=== PATIENT | female | born 1960 | race Caucasian/White ===

== ENCOUNTER 2021-05-27 10:13 | Outpatient (CLI) | payer BC, SELFPAY ==
[2021-05-27 10:42] LABS: Basophils Percent Auto 0.4 % (0.2-1.2); Eosinophils Absolute Auto 0.1 K/mm3 (0-0.3); Eosinophils Percent Auto 1.8 % (0-4.4); Hematocrit 41.1 % (37.0-47.0); Hemoglobin 13.5 g/dL (12.0-15.0); Immature Granulocyte Absolute 0.02 K/mm3 (0.00-0.031); Immature Granulocyte Percent A 0.4 % (0-0.5); Lymphocytes Absolute Auto 1.92 K/mm3 (0.9-3.2); Mean Corpuscular HGB Conc 32.8 g/dl (32-36); Mean Corpuscular Hemoglobin 28.9 pg (26-34); Mean Platelet Volume 9.9 fl (7.4-10.4); Monocytes Absolute Auto 0.4 K/mm3 (0.1-0.6); Neutrophils Percent Auto 54.4 % (45.5-73.1); Platelet Count Result 215 k/mm3 (150-375); Red Blood Count 4.67 M/mm3 (4.2-5.4); Red Cell Distribution Width 13.4 % (11.5-14.5); White Blood Count 5.5 K/mm3 (4.5-10.0)
[2021-05-27 10:48] LABS: Add Urine Microscopic? YES; Appearance Urine Cloudy (Clear); Bilirubin Urine Negative (Negative); Blood Urine Negative (Negative); Color Urine Yellow (Yellow); Glucose Urine UA Negative (Negative); Ketones Urine Negative (Negative); Leukocyte Esterase Ur 3+ LEU/UL (NEGATIVE); Mucus Urine Rare /lpf; Nitrate Urine Negative (Negative); Protein Urine 1+ mg/dL (Negative); Specific Grav Ur 1.018 (1.001-1.035); Squamous Epithelial Cell Urine Rare /hpf (Few); Urobilinogen Urine Negative mg/dL (<2.0)
[2021-05-27 11:20] LABS: Iron 75 ug/dL (37-170)
[2021-05-27 11:47] LABS: Alanine Aminotransferase 27 U/L (4-35); Alkaline Phosphatase 108 U/L (38-126); Anion Gap 5 mmol/L (8-16); Aspartate Amino Transferase 41 U/L (14-36); Bilirubin,Total 0.5 mg/dL (0.2-1.3); Blood Urea Nitrogen 12 mg/dL (7-17); Calcium 8.9 mg/dL (8.4-10.2); Carbon Dioxide 28 mmol/L (22-30); Chloride 108 mmol/L (98-107); Cholesterol 245 mg/dL (0-200); Estimated Glomerular Filt Rate > 60; Glucose 93 mg/dL (65-105); HDL Direct 77 mg/dL; Potassium 4.2 mmol/L (3.4-5.0); Sodium 141 mmol/L (137-145); Triglycerides 62 mg/dL (<150)
[2021-05-27 11:58] LABS: LDL Cholesterol Direct 110 mg/dL
[2021-05-27 12:51] LABS: Folic Acid 4.8 ng/mL (2.76->20)
== END 2021-05-27 10:14 | disposition home or self-care (01) ==
LOC: ANHLAB 10:15
PROVIDERS: PCP Family Medicine; Visit Provider Family Medicine
DX: Z00.00 Encounter for general adult medical examination without abnormal findings (principal); E78.2 Mixed hyperlipidemia
CPT/HCPCS: 36415; 80053; 80061; 81001; 82607; 82746; 83540; 84443; 85025

== ENCOUNTER 2022-02-18 08:12 | Outpatient (CLI) | payer OTHER, SELFPAY ==
--- NOTE | ~2022-02-18 | CT_ITS ---
EXAMINATION: CTA chest DATE: 02/18/2022 08:41 INDICATION: Family history of ischemic heart disease TECHNIQUE: Computed tomographic angiography (CTA) of the chest was performed without and with 100 mL Omnipque-350 intravenous contrast. Maximum intensity projection 3D-reconstructions of the aorta and o ther arteries were constructed by the technologist on a separate workstation. The dose-length product (DLP) was 287.29 mGy-cm. Automated exposure control and iterative reconstruction technique were empl oyed. COMPARISON: None. FINDINGS: The aorta measures 4.5 x 4.3 cm at the sinuses of [place] a 3.5 cm at the level of the melissa n pulmonary artery. There is no aortic dissection. The heart size is normal. Calcified coronary arter y atherosclerosis is noted. There are no pathologically enlarged thoracic lymph nodes. There is mild dependent atelectasis. There is no pleural effusion or pneumothorax. There is mild thoracic spondylos is. Peripelvic cysts are noted in the kidneys. Cysts of the right kidney upper pole measure up to 2.8 cm. IMPRESSION: 1. Dilated aortic root measuring up to 4.5 cm at the sinuses of Valsalva. No dissection. Reviewed, dictated and finalized at location B. IMPRESSION: 1. Dilated aortic root measuring up to 4.5 cm at the sinuses of Valsalva. No di ssection.
--- NOTE | 2022-02-18 09:38 | ECG_ITS ---
Measurements Intervals [place] Rate: 49 P: -24 MA: 156 QRS: 66 QRSD: 88 T: 65 QT: 440 QTc: 400 Interpretive Statements MARKED SINUS BRADYCARDIA BORDERLINE ECG NO PREVIOUS ECG AVAILABLE FOR COMPARISON Electronically Signed On 02-18-2022 14:07:34 CDT by Bimal Peterson M.D.
--- NOTE | 2022-02-18 10:04 | EST_ITS ---
Patient Info Name: Leticia Watters Age: 61 years : 1960 Gender: Female Ht: 65 in Wt: 185 lbs BSA: 1.99 m2 HR: 66 bpm BP: 154 / 97 mmHg Heart Rhythm: Sinus Rhythm Exam Date: 02/18/2022 10:15 AM Exam Location: [facility] Stress Patient Status: Outpatient Admit Date: 02/18/2022 Staff Ordering Physician: Drake Freire MD Attending Provider: Drake Freire MD Exercise Technologist: Vikki Menjivar CT Exercise Physician: Joe Campos DO Exam Type: [place] stress test treadmill Study Info Indications R07.9 - Chest pain, unspecified A treadmill exercise stress test was performed. Summary 1. 1. Negative [place] exercise stress test for ischemic ST changes by ECG criteria. 2. 2. Good functional capacity, achieving 8.9 METs of workload. 3. 3. Baseline hypertension with hypertensive response to exercise. 4. 4. Appropriate HR response to exercise. 5. 5. Appropriate HR recovery at 1 minute post exercise. 6. 6. No imaging with stress testing. 7. 7. Patient informed of the above results. Protocol: [place] Stress ECG Details Stage: REST Duration (min): 2 min : 4 sec Speed (mph): 0.0 Grade (%): 0 HR (bpm): 67 SBP (mmHg): 154 DBP (mmHg): 97 METS: --- Stage: REST Duration (min): 8 min : 15 sec Speed (mph): 0.0 Grade (%): 0 HR (bpm): 67 SBP (mmHg): 154 DBP (mmHg): 97 METS: --- Stage: STAGE 1 Duration (min): 1 min : 0 sec Speed (mph): 1.7 Grade (%): 10 HR (bpm): 106 SBP (mmHg): 154 DBP (mmHg): 97 METS: --- Stage: STAGE 1 Duration (min): 2 min : 0 sec Speed (mph): 1.7 Grade (%): 10 HR (bpm): 115 SBP (mmHg): 154 DBP (mmHg): 97 METS: --- Stage: STAGE 1 Duration (min): 3 min : 0 sec Speed (mph): 1.7 Grade (%): 10 HR (bpm): 118 SBP (mmHg): 185 DBP (mmHg): 92 METS: --- Stage: STAGE 2 Duration (min): 1 min : 0 sec Speed (mph): 2.5 Grade (%): 12 HR (bpm): 129 SBP (mmHg): 185 DBP (mmHg): 92 METS: --- Stage: STAGE 2 Duration (min): 2 min : 0 sec Speed (mph): 2.5 Grade (%): 12 HR (bpm): 138 SBP (mmHg): 200 DBP (mmHg): 90 METS: --- Stage: STAGE 2 Duration (min): 3 min : 0 sec Speed (mph): 2.5 Grade (%): 12 HR (bpm): 142 SBP (mmHg): 200 DBP (mmHg): 90 METS: --- Stage: STAGE 3 Duration (min): 1 min : 0 sec Speed (mph): 3.4 Grade (%): 14 HR (bpm): 157 SBP (mmHg): 210 DBP (mmHg): 92 METS: --- Stage: STAGE 3 Duration (min): 1 min : 0 sec Speed (mph): 3.4 Grade (%): 14 HR (bpm): 156 SBP (mmHg): 210 DBP (mmHg): 92 METS: --- Stage: RECOVERY Duration (min): 0 min : 59 sec Speed (mph): 0.0 Grade (%): 0 HR (bpm): 126 SBP (mmHg): 210 DBP (mmHg): 92 METS: --- Stage: RECOVERY Duration (min): 1 min : 59 sec Speed (mph): 0.0 Grade (%): 0 HR (bpm): 84 SBP (
== END 2022-02-18 08:13 | disposition home or self-care (01) ==
PROVIDERS: PCP Family Medicine; Visit Provider Family Medicine
DX: Z82.49 Family history of ischemic heart disease and other diseases of the circulatory system (principal); R07.89 Other chest pain; R00.1 Bradycardia, unspecified
CPT/HCPCS: 71275; 93005; 93017; Q9967